=== PATIENT | male | born 1940 | race Caucasian/White ===

== ENCOUNTER 2020-12-02 07:41 | Inpatient (IN) ==
[2020-12-02] MEDS ORDERED: 0.9 % Sodium Chloride 1,000 ML IVC ONE ×2 (08:03→10:09)
[2020-12-02 08:27] LABS: Basophils % 0.1 %; Hematocrit 42.8 % (37.5-50.1); Immature Granulocytes % 0.6 % (0-4); Lymphocytes # 0.7 K/mcL (0.6-4.6); Mean Corpuscular HGB Conc 32.7 g/dL (31.6-35.5); Mean Corpuscular Volume 88.8 fL (83.0-100.0); Mean Platelet Volume 11.3 fL (9.4-12.4); Monocytes # 1.2 K/mcL (0.0-1.3); Monocytes % 10.1 %; Neutrophils # 10.1 K/mcL (1.6-8.9); Platelet Count 183 K/mcL (140-400); Red Blood Count 4.82 M/mcL (4.19-5.50); Red Cell Distribution Width 14.6 % (11.5-14.5); Segmented Neutrophils % 83.2 %; White Blood Count 12.2 K/mcL (4.3-11.1)
[2020-12-02 08:48] LABS: Bacteria,Urine Few per hpf (None-Few); Bilirubin,Urine Negative (Negative); Blood,Urine Moderate (Negative); Clarity,Urine Clear (Clear); Color,Urine Yellow (Yellow); Glucose,Urine (UA) Normal (Normal); Ketones,Urine 20 mg/dL (Negative); Leukocyte Esterase,Urine Moderate (Negative); Mucus,Urine Few per lpf (None-Few); Nitrite,Urine Negative (Negative); Protein,Urine 100 mg/dL (Neg-Trace); RBC,Urine 15-30 per hpf (0-3); Specific Gravity,Urine 1.027 (1.010-1.025); Squamous Epithelial Cell,Urine Few per hpf (None-Few); Urobilinogen,Urine >=8.0 mg/dL (Normal); WBC,Urine 50-100 per hpf (0-3)
[2020-12-02 08:49] LABS: Alanine Aminotransferase 13 Units/L (7-52); Albumin 3.6 g/dL (3.5-5.7); Albumin/Globulin Ratio 0.8 (1.1-2.2); Alkaline Phosphatase 73 Units/L (34-104); Amylase 29 Units/L (29-103); Aspartate Amino Transferase 27 Units/L (13-39); BUN/Creatinine Ratio 34 (6-26); Bilirubin,Direct 0.3 mg/dL (0.0-0.2); Bilirubin,Indirect 0.7 mg/dL (0.0-1.0); Blood Urea Nitrogen 31 mg/dL (8-23); Calcium 9.3 mg/dL (8.6-10.3); Carbon Dioxide 25 mEq/L (23-29); Chloride 97 mEq/L (98-107); Globulin 4.4 g/dL (2.4-3.5); Glucose 116 mg/dL (70-105); Lipase 13 Units/L (11-82); Osmolality,Calculated 284 (280-300); Potassium 3.8 mEq/L (3.5-5.1); Sodium 133 mEq/L (136-145); Troponin I < 0.03 ng/mL (< 0.04); eGFR For African Americans > 60 (> 60); eGFR For Non-African Americans > 60 (> 60)
[2020-12-02 09:34] LABS: Adenovirus Not Detected (Not Detect); Bordetella Pertussis Not Detected (Not Detect); Chlamydophila pneumoniae Not Detected (Not Detect); Coronavirus 229E Not Detected (Not Detect); Coronavirus HKU1 Not Detected (Not Detect); Coronavirus NL63 Not Detected (Not Detect); Coronavirus OC43 Not Detected (Not Detect); Human Metapneumovirus Not Detected (Not Detect); Human Rhinovirus/Enterovirus Not Detected (Not Detect); Influenza A Subtype 2009 H1 Not Detected (Not Detect); Influenza B Not Detected (Not Detect); Mycoplasma pneumoniae Not Detected (Not Detect); Parainfluenza Virus 1 Not Detected (Not Detect); Parainfluenza Virus 2 Not Detected (Not Detect); Parainfluenza Virus 3 Not Detected (Not Detect); Parainfluenza Virus 4 Not Detected (Not Detect); Respiratory Syncytial Virus Not Detected (Not Detect); SARS-CoV-2 Not Detected (Not Detect)
[2020-12-02] MEDS ORDERED: cefTRIAXone 1,000 MG in 0.9 % Sodium Chloride Mini Bag 100 ML IVPB ONE (09:53)
[2020-12-02] MEDS ORDERED: CefTRIAXone 1,000 MG VIAL ONE (10:00)
[2020-12-02] MEDS ORDERED: Naloxone 0.4 MG/ML INJ IVP PRN (10:17)
[2020-12-02] MEDS ORDERED: Acetaminophen 325 MG TABLET PO PRN (11:32)
[2020-12-02] MEDS ORDERED: *HR* OxyCODONE Immed Rel 5 MG TABLET PO PRN (11:32)
[2020-12-02] MEDS: 0.9 % Sodium Chloride 1,000 ML IVC SCH (17:23)
[2020-12-02] MEDS ORDERED: Ketorolac 30 MG/ML VIAL IVP PRN (17:34)
[2020-12-03] MEDS: 0.9 % Sodium Chloride 1,000 ML IVC SCH ×3 (01:46→16:48)
[2020-12-03] MEDS: *HR* HYDROcodone/Acet 5/325 mg TABLET PO PRN ×2 (07:49→18:19)
[2020-12-03 07:53] LABS: Basophils % 0.1 %; Eosinophils % 0.1 %; Hematocrit 34.4 % (37.5-50.1); Immature Granulocytes % 0.5 % (0-4); Lymphocytes # 1.3 K/mcL (0.6-4.6); Lymphocytes % 9.5 %; Mean Corpuscular Hemoglobin 29.6 pg (28.0-33.3); Mean Corpuscular Volume 92.5 fL (83.0-100.0); Mean Platelet Volume 11.8 fL (9.4-12.4); Monocytes # 1.4 K/mcL (0.0-1.3); Monocytes % 10.2 %; Neutrophils # 10.7 K/mcL (1.6-8.9); Platelet Count 157 K/mcL (140-400); Red Blood Count 3.72 M/mcL (4.19-5.50); Segmented Neutrophils % 79.6 %; White Blood Count 13.4 K/mcL (4.3-11.1)
[2020-12-03 08:17] LABS: BUN/Creatinine Ratio 37 (6-26); Blood Urea Nitrogen 28 mg/dL (8-23); Calcium 8.2 mg/dL (8.6-10.3); Carbon Dioxide 23 mEq/L (23-29); Chloride 104 mEq/L (98-107); Glucose 96 mg/dL (70-105); Osmolality,Calculated 285 (280-300); Potassium 3.6 mEq/L (3.5-5.1); Sodium 135 mEq/L (136-145); eGFR For African Americans > 60 (> 60); eGFR For Non-African Americans > 60 (> 60)
[2020-12-03] MEDS ORDERED: cefTRIAXone 2,000 MG in Water for inj. (sterile) 20 ML IVP SCH (09:00)
[2020-12-03] MEDS: *HR* Heparin 5,000 UNIT/ML VIAL SQ SCH (16:48)
[2020-12-03] MEDS: Ertapenem 1,000 MG in 0.9 % Sodium Chloride Mini Bag 100 ML IVPB SCH (16:49)
[2020-12-03] MEDS: Budesonide/Formoterol 160/4.5 1 PUFF INH IH SCH (20:15)
[2020-12-03] MEDS: Gabapentin 300 MG CAPSULE PO SCH (20:26)
[2020-12-04] MEDS: 0.9 % Sodium Chloride 1,000 ML IVC SCH ×2 (02:57→08:21)
[2020-12-04] MEDS: *HR* Heparin 5,000 UNIT/ML VIAL SQ SCH ×2 (05:39→16:58)
[2020-12-04 06:38] LABS: Basophils % 0.1 %; Eosinophils % 0.3 %; Hematocrit 34.5 % (37.5-50.1); Immature Granulocytes % 0.6 % (0-4); Lymphocytes # 1.6 K/mcL (0.6-4.6); Lymphocytes % 10.6 %; Mean Corpuscular HGB Conc 31.9 g/dL (31.6-35.5); Mean Corpuscular Hemoglobin 29.4 pg (28.0-33.3); Mean Corpuscular Volume 92.2 fL (83.0-100.0); Monocytes # 1.4 K/mcL (0.0-1.3); Monocytes % 9.4 %; Neutrophils # 12.1 K/mcL (1.6-8.9); Platelet Count 176 K/mcL (140-400); Red Blood Count 3.74 M/mcL (4.19-5.50); Red Cell Distribution Width 15.2 % (11.5-14.5); White Blood Count 15.3 K/mcL (4.3-11.1)
[2020-12-04 06:56] LABS: BUN/Creatinine Ratio 34 (6-26); Blood Urea Nitrogen 25 mg/dL (8-23); Calcium 8.1 mg/dL (8.6-10.3); Carbon Dioxide 21 mEq/L (23-29); Chloride 108 mEq/L (98-107); Glucose 106 mg/dL (70-105); Osmolality,Calculated 287 (280-300); Potassium 3.6 mEq/L (3.5-5.1); Sodium 136 mEq/L (136-145); eGFR For African Americans > 60 (> 60); eGFR For Non-African Americans > 60 (> 60)
[2020-12-04] MEDS: amLODIPine 5 MG TABLET PO SCH (08:14)
[2020-12-04] MEDS: lisinopriL 20 MG TABLET PO SCH (08:14)
[2020-12-04] MEDS: FLUoxetine 20 MG CAPSULE PO SCH (08:21)
[2020-12-04] MEDS: *HR* HYDROcodone/Acet 5/325 mg TABLET PO PRN (08:46)
[2020-12-04] MEDS: Budesonide/Formoterol 160/4.5 1 PUFF INH IH SCH ×2 (10:42→23:00)
[2020-12-04] MEDS ORDERED: Isovue-370 500 ML BOTTLE IVP ONE (15:24)
[2020-12-04] MEDS: Ertapenem 1,000 MG in 0.9 % Sodium Chloride Mini Bag 100 ML IVPB SCH (16:58)
[2020-12-04] MEDS: Gabapentin 300 MG CAPSULE PO SCH (20:32)
[2020-12-05 06:09] LABS: Basophils % 0.1 %; Eosinophils # 0.1 K/mcL (0.0-0.6); Eosinophils % 1.3 %; Hematocrit 36.3 % (37.5-50.1); Hemoglobin 11.6 g/dL (12.9-16.9); Immature Granulocytes % 0.8 % (0-4); Lymphocytes # 1.4 K/mcL (0.6-4.6); Lymphocytes % 12.7 %; Mean Corpuscular Hemoglobin 29.5 pg (28.0-33.3); Mean Corpuscular Volume 92.4 fL (83.0-100.0); Mean Platelet Volume 11.8 fL (9.4-12.4); Monocytes # 1.3 K/mcL (0.0-1.3); Monocytes % 11.4 %; Neutrophils # 8.1 K/mcL (1.6-8.9); Platelet Count 214 K/mcL (140-400); Red Blood Count 3.93 M/mcL (4.19-5.50); Red Cell Distribution Width 15.3 % (11.5-14.5); Segmented Neutrophils % 73.7 %
[2020-12-05] MEDS: *HR* Heparin 5,000 UNIT/ML VIAL SQ SCH ×2 (06:10→17:07)
[2020-12-05 06:31] LABS: BUN/Creatinine Ratio 30 (6-26); Blood Urea Nitrogen 20 mg/dL (8-23); Calcium 8.3 mg/dL (8.6-10.3); Carbon Dioxide 23 mEq/L (23-29); Chloride 106 mEq/L (98-107); Glucose 107 mg/dL (70-105); Osmolality,Calculated 287 (280-300); Potassium 3.4 mEq/L (3.5-5.1); Sodium 137 mEq/L (136-145); eGFR For African Americans > 60 (> 60); eGFR For Non-African Americans > 60 (> 60)
[2020-12-05] MEDS: amLODIPine 5 MG TABLET PO SCH (08:22)
[2020-12-05] MEDS: lisinopriL 20 MG TABLET PO SCH (08:22)
[2020-12-05] MEDS: FLUoxetine 20 MG CAPSULE PO SCH (08:22)
[2020-12-05] MEDS ORDERED: Ipratropium/Albuterol Neb 3 ML IH PRN (08:56)
[2020-12-05] MEDS ORDERED: Lidocaine -MPF 1% 5 ML AMPUL INFILT ONE (09:00)
[2020-12-05] MEDS: Budesonide/Formoterol 160/4.5 1 PUFF INH IH SCH ×2 (11:12→20:26)
[2020-12-05] MEDS: Ertapenem 1,000 MG in 0.9 % Sodium Chloride Mini Bag 100 ML IVPB SCH (17:07)
[2020-12-05] MEDS: Gabapentin 300 MG CAPSULE PO SCH (20:20)
[2020-12-05] MEDS ORDERED: 0.9 % Sodium Chloride 500 ML ONE (23:27)
[2020-12-06] MEDS ORDERED: 0.9 % Sodium Chloride 500 ML ONE (00:22)
[2020-12-06] MEDS ORDERED: 0.9 % Sodium Chloride 1,000 ML ONE ×2 (01:05→03:03)
[2020-12-06] MEDS ORDERED: Naloxone 0.4 MG/ML INJ IVP PRN (04:45)
[2020-12-06] MEDS ORDERED: Acetaminophen 325 MG TABLET PO PRN (04:45)
[2020-12-06] MEDS ORDERED: Ipratropium/Albuterol Neb 3 ML IH PRN (04:45)
[2020-12-06] MEDS ORDERED: *HR* OxyCODONE Immed Rel 5 MG TABLET PO PRN (04:45)
[2020-12-06] MEDS ORDERED: Ketorolac 30 MG/ML VIAL IVP PRN (04:45)
[2020-12-06 04:53] LABS: Basophils % 0.1 %; Eosinophils # 0.1 K/mcL (0.0-0.6); Eosinophils % 0.8 %; Hematocrit 29.6 % (37.5-50.1); Immature Granulocytes % 0.5 % (0-4); Lymphocytes # 1.3 K/mcL (0.6-4.6); Mean Corpuscular HGB Conc 32.8 g/dL (31.6-35.5); Mean Corpuscular Hemoglobin 30.1 pg (28.0-33.3); Mean Corpuscular Volume 91.9 fL (83.0-100.0); Mean Platelet Volume 11.7 fL (9.4-12.4); Monocytes # 1.3 K/mcL (0.0-1.3); Monocytes % 13.8 %; Neutrophils # 6.5 K/mcL (1.6-8.9); Platelet Count 225 K/mcL (140-400); Red Blood Count 3.22 M/mcL (4.19-5.50); Red Cell Distribution Width 15.2 % (11.5-14.5); Segmented Neutrophils % 70.8 %; White Blood Count 9.2 K/mcL (4.3-11.1)
[2020-12-06 04:56] LABS: Hemoglobin 9.7 g/dL (12.9-16.9)
[2020-12-06] MEDS ORDERED: *HR* Metoprolol 5 MG/5 ML VIAL IVP PRN (05:07)
[2020-12-06 05:12] LABS: BUN/Creatinine Ratio 22 (6-26); Blood Urea Nitrogen 14 mg/dL (8-23); Calcium 7.8 mg/dL (8.6-10.3); Carbon Dioxide 24 mEq/L (23-29); Chloride 108 mEq/L (98-107); Glucose 112 mg/dL (70-105); Osmolality,Calculated 287 (280-300); Potassium 3.3 mEq/L (3.5-5.1); Sodium 138 mEq/L (136-145); eGFR For African Americans > 60 (> 60); eGFR For Non-African Americans > 60 (> 60)
[2020-12-06] MEDS: 0.9 % Sodium Chloride 1,000 ML IVC SCH ×2 (05:30→17:08)
[2020-12-06] MEDS ORDERED: *HR* Heparin 5,000 UNIT/ML VIAL SQ SCH (06:00)
[2020-12-06] MEDS: FLUoxetine 20 MG CAPSULE PO SCH (07:56)
[2020-12-06] MEDS: lisinopriL 20 MG TABLET PO SCH (07:56)
[2020-12-06] MEDS: amLODIPine 5 MG TABLET PO SCH (07:56)
[2020-12-06] MEDS ORDERED: Furosemide 20 MG/2 ML VIAL IVP ONE (07:58)
[2020-12-06] MEDS ORDERED: Albumin 25% 25gram/100mL 25 GM/100 ML IV.SOLN IVPB ONE (07:58)
[2020-12-06] MEDS: Budesonide/Formoterol 160/4.5 1 PUFF INH IH SCH ×2 (09:30→21:45)
[2020-12-06 10:27] LABS: Hematocrit 33.2 % (37.5-50.1); Hemoglobin 10.6 g/dL (12.9-16.9)
[2020-12-06] MEDS ORDERED: Perflutren Lipid Microsphere 1.3 ML in 0.9 % Sodium Chloride 8.7 ML IVP PRN (10:47)
[2020-12-06] MEDS ORDERED: *HR* Heparin 5,000 UNIT/ML VIAL IVP ONE (15:02)
[2020-12-06] MEDS ORDERED: *HR* Heparin 5,000 UNIT/ML VIAL IVP PRN ×2 (15:02)
[2020-12-06] MEDS: Ertapenem 1,000 MG in 0.9 % Sodium Chloride Mini Bag 100 ML IVPB SCH (17:12)
[2020-12-06] MEDS: Heparin 25,000UNIT/250ML 1/2NS 25,000 UNIT/250 ML IV.SOLN IVC SCH (17:14)
[2020-12-06] MEDS: Gabapentin 300 MG CAPSULE PO SCH (21:05)
[2020-12-07 03:24] LABS: Basophils % 0.2 %; Eosinophils # 0.3 K/mcL (0.0-0.6); Eosinophils % 2.7 %; Hematocrit 30.9 % (37.5-50.1); Hemoglobin 9.9 g/dL (12.9-16.9); Immature Granulocytes % 0.7 % (0-4); Lymphocytes # 1.6 K/mcL (0.6-4.6); Lymphocytes % 14.8 %; Mean Corpuscular Hemoglobin 29.3 pg (28.0-33.3); Mean Corpuscular Volume 91.4 fL (83.0-100.0); Mean Platelet Volume 11.4 fL (9.4-12.4); Monocytes # 1.4 K/mcL (0.0-1.3); Neutrophils # 7.3 K/mcL (1.6-8.9); Platelet Count 250 K/mcL (140-400); Red Blood Count 3.38 M/mcL (4.19-5.50); Red Cell Distribution Width 15.4 % (11.5-14.5); Segmented Neutrophils % 68.6 %; White Blood Count 10.7 K/mcL (4.3-11.1)
[2020-12-07 03:43] LABS: BUN/Creatinine Ratio 27 (6-26); Blood Urea Nitrogen 14 mg/dL (8-23); Calcium 8.1 mg/dL (8.6-10.3); Carbon Dioxide 25 mEq/L (23-29); Chloride 106 mEq/L (98-107); Glucose 104 mg/dL (70-105); Osmolality,Calculated 291 (280-300); Potassium 3.2 mEq/L (3.5-5.1); Sodium 140 mEq/L (136-145); eGFR For African Americans > 60 (> 60); eGFR For Non-African Americans > 60 (> 60)
[2020-12-07 06:50] LABS: Alanine Aminotransferase 9 Units/L (7-52); Albumin 2.6 g/dL (3.5-5.7); Albumin/Globulin Ratio 0.8 (1.1-2.2); Alkaline Phosphatase 52 Units/L (34-104); Aspartate Amino Transferase 22 Units/L (13-39); BUN/Creatinine Ratio 27 (6-26); Bilirubin,Total 0.7 mg/dL (0.3-1.0); Blood Urea Nitrogen 15 mg/dL (8-23); Calcium 8.3 mg/dL (8.6-10.3); Carbon Dioxide 28 mEq/L (23-29); Chloride 105 mEq/L (98-107); Globulin 3.1 g/dL (2.4-3.5); Glucose 104 mg/dL (70-105); Osmolality,Calculated 293 (280-300); Potassium 3.2 mEq/L (3.5-5.1); Sodium 141 mEq/L (136-145); Total Protein 5.7 g/dL (6.4-8.9); eGFR For African Americans > 60 (> 60); eGFR For Non-African Americans > 60 (> 60)
[2020-12-07] MEDS: Budesonide/Formoterol 160/4.5 1 PUFF INH IH SCH ×2 (07:29→19:28)
[2020-12-07] MEDS: 0.9 % Sodium Chloride 1,000 ML IVC SCH ×3 (07:37→22:51)
[2020-12-07] MEDS: lisinopriL 20 MG TABLET PO SCH (08:52)
[2020-12-07] MEDS: amLODIPine 5 MG TABLET PO SCH (08:52)
[2020-12-07] MEDS: FLUoxetine 20 MG CAPSULE PO SCH (09:02)
[2020-12-07] MEDS: *HR* HYDROcodone/Acet 5/325 mg TABLET PO PRN (09:02)
[2020-12-07] MEDS: Heparin 25,000UNIT/250ML 1/2NS 25,000 UNIT/250 ML IV.SOLN IVC SCH ×2 (10:14→11:38)
[2020-12-07] MEDS: Ertapenem 1,000 MG in 0.9 % Sodium Chloride Mini Bag 100 ML IVPB SCH (17:16)
[2020-12-07] MEDS: Gabapentin 300 MG CAPSULE PO SCH (20:09)
[2020-12-08 06:44] LABS: Basophils % 0.3 %; Eosinophils # 0.3 K/mcL (0.0-0.6); Eosinophils % 3.2 %; Hematocrit 31.7 % (37.5-50.1); Hemoglobin 9.9 g/dL (12.9-16.9); Immature Granulocytes % 0.8 % (0-4); Lymphocytes # 1.9 K/mcL (0.6-4.6); Lymphocytes % 18.6 %; Mean Corpuscular HGB Conc 31.2 g/dL (31.6-35.5); Mean Corpuscular Hemoglobin 28.9 pg (28.0-33.3); Mean Corpuscular Volume 92.4 fL (83.0-100.0); Mean Platelet Volume 11.5 fL (9.4-12.4); Monocytes # 1.3 K/mcL (0.0-1.3); Monocytes % 12.3 %; Neutrophils # 6.7 K/mcL (1.6-8.9); Platelet Count 315 K/mcL (140-400); Red Blood Count 3.43 M/mcL (4.19-5.50); Red Cell Distribution Width 15.5 % (11.5-14.5); Segmented Neutrophils % 64.8 %; White Blood Count 10.4 K/mcL (4.3-11.1)
[2020-12-08 07:04] LABS: Chol/HDL Ratio 4.8 (0-4.9)
[2020-12-08] MEDS: Budesonide/Formoterol 160/4.5 1 PUFF INH IH SCH ×2 (07:29→21:56)
[2020-12-08] MEDS: 0.9 % Sodium Chloride 1,000 ML IVC SCH ×2 (07:30→17:31)
[2020-12-08] MEDS: Heparin 25,000UNIT/250ML 1/2NS 25,000 UNIT/250 ML IV.SOLN IVC SCH (07:58)
[2020-12-08] MEDS: lisinopriL 5 MG TABLET PO SCH (08:36)
[2020-12-08] MEDS: FLUoxetine 20 MG CAPSULE PO SCH (08:36)
[2020-12-08 10:20] LABS: BUN/Creatinine Ratio 28 (6-26); Blood Urea Nitrogen 16 mg/dL (8-23); Calcium 8.3 mg/dL (8.6-10.3); Carbon Dioxide 28 mEq/L (23-29); Chloride 105 mEq/L (98-107); Glucose 103 mg/dL (70-105); Osmolality,Calculated 289 (280-300); Potassium 3.9 mEq/L (3.5-5.1); Sodium 139 mEq/L (136-145); eGFR For African Americans > 60 (> 60); eGFR For Non-African Americans > 60 (> 60)
[2020-12-08] MEDS ORDERED: ISOVUE-370 200 ML INFUS..BTL ONE (10:59)
[2020-12-08] MEDS ORDERED: *HR* Heparin 10,000 UNIT/10 ML VIAL ONE (10:59)
[2020-12-08] MEDS ORDERED: Heparin 1,000 UNITS/500 mL 500 ML ONE (10:59)
[2020-12-08] MEDS ORDERED: 0.9 % Sodium Chloride 2,000 ML ONE (10:59)
[2020-12-08] MEDS ORDERED: Nitroglycerin 1,000 MCG/10 ML VIAL IV ONE (11:00)
[2020-12-08] MEDS ORDERED: *HR* Midazolam HCl 2 MG/2 ML VIAL ONE (11:28)
[2020-12-08] MEDS ORDERED: *HR* FentaNYL (PF) 100 MCG/2 ML VIAL ONE (11:28)
[2020-12-08] MEDS: Aspirin 81 MG TAB.CHEW PO SCH (14:12)
[2020-12-08] MEDS: Ertapenem 1,000 MG in 0.9 % Sodium Chloride Mini Bag 100 ML IVPB SCH (17:32)
[2020-12-08] MEDS: Gabapentin 300 MG CAPSULE PO SCH (20:47)
[2020-12-09 01:55] LABS: Basophils % 0.3 %; Eosinophils # 0.2 K/mcL (0.0-0.6); Eosinophils % 1.4 %; Hematocrit 32.6 % (37.5-50.1); Hemoglobin 10.1 g/dL (12.9-16.9); Immature Granulocytes % 0.7 % (0-4); Lymphocytes # 2.2 K/mcL (0.6-4.6); Lymphocytes % 20.1 %; Mean Corpuscular Hemoglobin 28.7 pg (28.0-33.3); Mean Corpuscular Volume 92.6 fL (83.0-100.0); Mean Platelet Volume 11.4 fL (9.4-12.4); Monocytes # 1.5 K/mcL (0.0-1.3); Monocytes % 13.4 %; Platelet Count 352 K/mcL (140-400); Red Blood Count 3.52 M/mcL (4.19-5.50); Red Cell Distribution Width 15.4 % (11.5-14.5); Segmented Neutrophils % 64.1 %; White Blood Count 10.9 K/mcL (4.3-11.1)
[2020-12-09 02:13] LABS: BUN/Creatinine Ratio 24 (6-26); Blood Urea Nitrogen 15 mg/dL (8-23); Calcium 8.5 mg/dL (8.6-10.3); Carbon Dioxide 28 mEq/L (23-29); Chloride 104 mEq/L (98-107); Glucose 94 mg/dL (70-105); Osmolality,Calculated 289 (280-300); Potassium 4.5 mEq/L (3.5-5.1); Sodium 139 mEq/L (136-145); eGFR For African Americans > 60 (> 60); eGFR For Non-African Americans > 60 (> 60)
[2020-12-09] MEDS: *HR* HYDROcodone/Acet 5/325 mg TABLET PO PRN (02:39)
[2020-12-09] MEDS: 0.9 % Sodium Chloride 1,000 ML IVC SCH (02:42)
[2020-12-09] MEDS: Budesonide/Formoterol 160/4.5 1 PUFF INH IH SCH ×2 (07:34→22:22)
[2020-12-09] MEDS: Heparin 25,000UNIT/250ML 1/2NS 25,000 UNIT/250 ML IV.SOLN IVC SCH ×2 (08:00→22:44)
[2020-12-09] MEDS ORDERED: Furosemide 20 MG/2 ML VIAL IVP STA (09:58)
[2020-12-09] MEDS: FLUoxetine 20 MG CAPSULE PO SCH (12:11)
[2020-12-09] MEDS: Aspirin 81 MG TAB.CHEW PO SCH (12:11)
[2020-12-09] MEDS: lisinopriL 5 MG TABLET PO SCH (12:11)
[2020-12-09 12:17] LABS: Influenza A PCR Negative (Negative); Influenza B PCR Negative (Negative); Resp. Syncytial Virus PCR Negative (Negative)
[2020-12-09 12:28] LABS: SARS-CoV-2 by PCR (In House) Negative (Negative)
[2020-12-09] MEDS ORDERED: Furosemide 20 MG/2 ML VIAL IVP ONE ×4 (12:28→13:02)
[2020-12-09] MEDS ORDERED: *HR* LORazepam 2 MG/ML VIAL IVP ONE (14:01)
[2020-12-09 14:51] LABS: ABG Base Excess 4 mEq/L (-2 to 3); ABG HCO3 28 mEq/L (21-27); ABG Oxygen Saturation 92 % (95-98); ABG PCO2 39 mmHg (35-45); ABG PH 7.46 pH Units (7.32-7.45); ABG PO2 61 mmHg (85-104); ABG TCO2 29 mEq/L (20-26)
[2020-12-09] MEDS: Ipratropium/Albuterol Neb 3 ML IH SCH ×2 (15:06→22:23)
[2020-12-09] MEDS: Ertapenem 1,000 MG in 0.9 % Sodium Chloride Mini Bag 100 ML IVPB SCH (18:13)
[2020-12-09] MEDS: Furosemide 40 MG/4 ML VIAL IVP SCH (22:23)
[2020-12-09] MEDS: Gabapentin 300 MG CAPSULE PO SCH (22:24)
[2020-12-10] MEDS: Ipratropium/Albuterol Neb 3 ML IH SCH ×4 (03:27→21:33)
[2020-12-10 06:31] LABS: Basophils % 0.3 %; Eosinophils # 0.1 K/mcL (0.0-0.6); Eosinophils % 0.7 %; Hematocrit 34.3 % (37.5-50.1); Hemoglobin 11.1 g/dL (12.9-16.9); Immature Granulocytes % 0.3 % (0-4); Lymphocytes # 1.8 K/mcL (0.6-4.6); Lymphocytes % 14.9 %; Mean Corpuscular HGB Conc 32.4 g/dL (31.6-35.5); Mean Corpuscular Hemoglobin 29.6 pg (28.0-33.3); Mean Corpuscular Volume 91.5 fL (83.0-100.0); Monocytes # 1.2 K/mcL (0.0-1.3); Monocytes % 9.8 %; Neutrophils # 8.9 K/mcL (1.6-8.9); Platelet Count 388 K/mcL (140-400); Red Blood Count 3.75 M/mcL (4.19-5.50); Red Cell Distribution Width 15.2 % (11.5-14.5)
[2020-12-10 07:09] LABS: BUN/Creatinine Ratio 24 (6-26); Blood Urea Nitrogen 17 mg/dL (8-23); Calcium 8.7 mg/dL (8.6-10.3); Carbon Dioxide 32 mEq/L (23-29); Chloride 98 mEq/L (98-107); Glucose 86 mg/dL (70-105); Osmolality,Calculated 291 (280-300); Potassium 3.3 mEq/L (3.5-5.1); Sodium 140 mEq/L (136-145); eGFR For African Americans > 60 (> 60); eGFR For Non-African Americans > 60 (> 60)
[2020-12-10] MEDS: Furosemide 40 MG/4 ML VIAL IVP SCH (08:10)
[2020-12-10] MEDS: FLUoxetine 20 MG CAPSULE PO SCH (08:10)
[2020-12-10] MEDS: lisinopriL 5 MG TABLET PO SCH (08:10)
[2020-12-10] MEDS: Aspirin 81 MG TAB.CHEW PO SCH (08:10)
[2020-12-10] MEDS ORDERED: Potassium Chloride 40 MEQ, Lidocaine 1% 2 ML in 0.9 % Sodium Chloride 500 ML IVPB ONE (08:22)
[2020-12-10] MEDS ORDERED: Furosemide 40 MG/4 ML VIAL IVP ONE (09:05)
[2020-12-10] MEDS: Budesonide/Formoterol 160/4.5 1 PUFF INH IH SCH ×2 (10:12→21:34)
[2020-12-10] MEDS: Ertapenem 1,000 MG in 0.9 % Sodium Chloride Mini Bag 100 ML IVPB SCH (17:02)
[2020-12-10] MEDS: Gabapentin 300 MG CAPSULE PO SCH (20:48)
[2020-12-10] MEDS: Metoprolol XL (24 HR) Succ 25 MG TAB.ER.24H PO SCH (20:48)
[2020-12-10] MEDS: Furosemide 80 MG in 0.9 % Sodium Chloride 50 ML IV SCH (20:48)
[2020-12-10] MEDS ORDERED: Furosemide 40 MG/4 ML VIAL IVP SCH (21:00)
[2020-12-10] MEDS: Heparin 25,000UNIT/250ML 1/2NS 25,000 UNIT/250 ML IV.SOLN IVC SCH (23:15)
[2020-12-11] MEDS: Ipratropium/Albuterol Neb 3 ML IH SCH ×4 (03:58→22:20)
[2020-12-11] MEDS: Furosemide 80 MG in 0.9 % Sodium Chloride 50 ML IV SCH (09:06)
[2020-12-11] MEDS: Aspirin 81 MG TAB.CHEW PO SCH (09:07)
[2020-12-11] MEDS: Metoprolol XL (24 HR) Succ 25 MG TAB.ER.24H PO SCH ×2 (09:07→19:38)
[2020-12-11] MEDS: FLUoxetine 20 MG CAPSULE PO SCH (09:07)
[2020-12-11] MEDS: Budesonide/Formoterol 160/4.5 1 PUFF INH IH SCH ×2 (11:09→22:20)
[2020-12-11 12:43] LABS: Monocytes % 10.8 %
[2020-12-11 12:48] LABS: Basophils # 0.1 K/mcL (0.0-0.2); Basophils % 0.5 %; Eosinophils # 0.1 K/mcL (0.0-0.6); Eosinophils % 0.8 %; Hematocrit 40.9 % (37.5-50.1); Hemoglobin 12.9 g/dL (12.9-16.9); Immature Granulocytes % 0.5 % (0-4); Lymphocytes # 1.5 K/mcL (0.6-4.6); Lymphocytes % 13.4 %; Mean Corpuscular HGB Conc 31.5 g/dL (31.6-35.5); Mean Corpuscular Hemoglobin 28.7 pg (28.0-33.3); Mean Corpuscular Volume 90.9 fL (83.0-100.0); Monocytes # 1.2 K/mcL (0.0-1.3); Neutrophils # 8.2 K/mcL (1.6-8.9); Platelet Count 452 K/mcL (140-400); Red Cell Distribution Width 15.3 % (11.5-14.5)
[2020-12-11 13:22] LABS: BUN/Creatinine Ratio 22 (6-26); Blood Urea Nitrogen 18 mg/dL (8-23); Calcium 9.4 mg/dL (8.6-10.3); Carbon Dioxide 34 mEq/L (23-29); Chloride 92 mEq/L (98-107); Glucose 98 mg/dL (70-105); Magnesium 1.8 mg/dL (1.6-2.6); Osmolality,Calculated 290 (280-300); Potassium 3.6 mEq/L (3.5-5.1); Sodium 139 mEq/L (136-145); eGFR For African Americans > 60 (> 60); eGFR For Non-African Americans > 60 (> 60)
[2020-12-11] MEDS: lisinopriL 5 MG TABLET PO SCH (17:04)
[2020-12-11] MEDS: Furosemide 40 MG/4 ML VIAL IVP SCH (17:06)
[2020-12-11] MEDS: Ertapenem 1,000 MG in 0.9 % Sodium Chloride Mini Bag 100 ML IVPB SCH (17:29)
[2020-12-11] MEDS: Gabapentin 300 MG CAPSULE PO SCH (19:38)
[2020-12-11] MEDS: Heparin 25,000UNIT/250ML 1/2NS 25,000 UNIT/250 ML IV.SOLN IVC SCH (23:18)
[2020-12-12 03:23] LABS: Basophils % 0.4 %; Eosinophils # 0.1 K/mcL (0.0-0.6); Eosinophils % 1.1 %; Hematocrit 35.1 % (37.5-50.1); Immature Granulocytes % 0.5 % (0-4); Lymphocytes # 2.1 K/mcL (0.6-4.6); Lymphocytes % 19.2 %; Mean Corpuscular HGB Conc 31.6 g/dL (31.6-35.5); Mean Corpuscular Hemoglobin 28.6 pg (28.0-33.3); Mean Corpuscular Volume 90.5 fL (83.0-100.0); Mean Platelet Volume 10.9 fL (9.4-12.4); Monocytes # 1.3 K/mcL (0.0-1.3); Monocytes % 11.8 %; Neutrophils # 7.4 K/mcL (1.6-8.9); Platelet Count 403 K/mcL (140-400); Red Blood Count 3.88 M/mcL (4.19-5.50); Red Cell Distribution Width 15.3 % (11.5-14.5)
[2020-12-12 03:25] LABS: Hemoglobin 11.1 g/dL (12.9-16.9)
[2020-12-12 03:40] LABS: BUN/Creatinine Ratio 28 (6-26); Blood Urea Nitrogen 20 mg/dL (8-23); Calcium 8.7 mg/dL (8.6-10.3); Carbon Dioxide 34 mEq/L (23-29); Chloride 97 mEq/L (98-107); Glucose 104 mg/dL (70-105); Magnesium 1.9 mg/dL (1.6-2.6); Osmolality,Calculated 291 (280-300); Potassium 3.8 mEq/L (3.5-5.1); Sodium 139 mEq/L (136-145); eGFR For African Americans > 60 (> 60); eGFR For Non-African Americans > 60 (> 60)
[2020-12-12] MEDS: Ipratropium/Albuterol Neb 3 ML IH SCH ×4 (04:20→21:12)
[2020-12-12] MEDS: FLUoxetine 20 MG CAPSULE PO SCH (08:53)
[2020-12-12] MEDS: Metoprolol XL (24 HR) Succ 25 MG TAB.ER.24H PO SCH ×2 (08:54→20:33)
[2020-12-12] MEDS: Aspirin 81 MG TAB.CHEW PO SCH (08:54)
[2020-12-12] MEDS: Furosemide 20 MG/2 ML VIAL IVP SCH ×2 (08:54→20:33)
[2020-12-12] MEDS: Budesonide/Formoterol 160/4.5 1 PUFF INH IH SCH ×2 (10:38→21:12)
[2020-12-12] MEDS: lisinopriL 5 MG TABLET PO SCH (11:00)
[2020-12-12] MEDS: Furosemide 40 MG/4 ML VIAL IVP SCH (11:08)
[2020-12-12] MEDS ORDERED: Nitroglycerin 1,000 MCG/10 ML VIAL IV ONE (12:34)
[2020-12-12] MEDS ORDERED: 0.9 % Sodium Chloride 2,000 ML ONE (12:34)
[2020-12-12] MEDS ORDERED: *HR* Heparin 10,000 UNIT/10 ML VIAL ONE (12:34)
[2020-12-12] MEDS ORDERED: ISOVUE-370 200 ML INFUS..BTL ONE ×2 (12:34→13:56)
[2020-12-12] MEDS ORDERED: Heparin 1,000 UNITS/500 mL 500 ML ONE (12:34)
[2020-12-12] MEDS ORDERED: *HR* Midazolam HCl 2 MG/2 ML VIAL ONE (13:02)
[2020-12-12] MEDS ORDERED: *HR* FentaNYL (PF) 100 MCG/2 ML VIAL ONE (13:02)
[2020-12-12] MEDS ORDERED: Tirofiban 12.5 MG/250ML 12.5 MG/250 ML BAG ONE (13:38)
[2020-12-12] MEDS ORDERED: Tirofiban 12.5 MG/250ML 12.5 MG/250 ML BAG IVC SCH (14:15)
[2020-12-12] MEDS: Ertapenem 1,000 MG in 0.9 % Sodium Chloride Mini Bag 100 ML IVPB SCH (17:16)
[2020-12-12] MEDS: Gabapentin 300 MG CAPSULE PO SCH (20:33)
[2020-12-13] MEDS: Ipratropium/Albuterol Neb 3 ML IH SCH ×4 (03:36→22:46)
[2020-12-13 06:49] LABS: Basophils % 0.4 %; Eosinophils # 0.1 K/mcL (0.0-0.6); Eosinophils % 1.4 %; Hematocrit 37.9 % (37.5-50.1); Hemoglobin 11.8 g/dL (12.9-16.9); Immature Granulocytes % 0.4 % (0-4); Lymphocytes # 1.6 K/mcL (0.6-4.6); Lymphocytes % 16.6 %; Mean Corpuscular HGB Conc 31.1 g/dL (31.6-35.5); Mean Corpuscular Hemoglobin 29.4 pg (28.0-33.3); Mean Corpuscular Volume 94.5 fL (83.0-100.0); Mean Platelet Volume 11.2 fL (9.4-12.4); Monocytes % 9.6 %; Neutrophils # 7.1 K/mcL (1.6-8.9); Platelet Count 349 K/mcL (140-400); Red Blood Count 4.01 M/mcL (4.19-5.50); Red Cell Distribution Width 15.3 % (11.5-14.5); Segmented Neutrophils % 71.6 %; White Blood Count 9.9 K/mcL (4.3-11.1)
[2020-12-13 07:12] LABS: BUN/Creatinine Ratio 22 (6-26); Blood Urea Nitrogen 17 mg/dL (8-23); Calcium 9.2 mg/dL (8.6-10.3); Carbon Dioxide 31 mEq/L (23-29); Chloride 100 mEq/L (98-107); Glucose 103 mg/dL (70-105); Osmolality,Calculated 288 (280-300); Potassium 3.9 mEq/L (3.5-5.1); Sodium 138 mEq/L (136-145); eGFR For African Americans > 60 (> 60); eGFR For Non-African Americans > 60 (> 60)
[2020-12-13] MEDS: FLUoxetine 20 MG CAPSULE PO SCH (07:55)
[2020-12-13] MEDS: Aspirin 81 MG TAB.CHEW PO SCH (07:55)
[2020-12-13] MEDS: lisinopriL 5 MG TABLET PO SCH (07:56)
[2020-12-13] MEDS: Metoprolol XL (24 HR) Succ 25 MG TAB.ER.24H PO SCH ×2 (07:56→20:02)
[2020-12-13] MEDS: Furosemide 20 MG/2 ML VIAL IVP SCH (07:56)
[2020-12-13] MEDS: Budesonide/Formoterol 160/4.5 1 PUFF INH IH SCH ×2 (10:07→22:46)
[2020-12-13] MEDS: Ertapenem 1,000 MG in 0.9 % Sodium Chloride Mini Bag 100 ML IVPB SCH (17:08)
[2020-12-13] MEDS: Gabapentin 300 MG CAPSULE PO SCH (20:02)
[2020-12-13] MEDS: *HR* HYDROcodone/Acet 5/325 mg TABLET PO PRN (20:02)
[2020-12-13] MEDS: Apixaban 5 MG TABLET PO SCH (20:02)
[2020-12-14] MEDS: Ipratropium/Albuterol Neb 3 ML IH SCH ×4 (03:53→21:45)
[2020-12-14] MEDS: Metoprolol XL (24 HR) Succ 25 MG TAB.ER.24H PO SCH ×2 (08:18→19:44)
[2020-12-14] MEDS: Aspirin 81 MG TAB.CHEW PO SCH (08:18)
[2020-12-14] MEDS: Furosemide 20 MG TABLET PO SCH (08:18)
[2020-12-14] MEDS: lisinopriL 5 MG TABLET PO SCH (08:18)
[2020-12-14] MEDS: FLUoxetine 20 MG CAPSULE PO SCH (08:18)
[2020-12-14] MEDS: Apixaban 5 MG TABLET PO SCH ×2 (08:18→19:43)
[2020-12-14] MEDS: Budesonide/Formoterol 160/4.5 1 PUFF INH IH SCH ×2 (10:20→21:45)
[2020-12-14] MEDS: Ertapenem 1,000 MG in 0.9 % Sodium Chloride Mini Bag 100 ML IVPB SCH (17:38)
[2020-12-14] MEDS: Gabapentin 300 MG CAPSULE PO SCH (19:43)
[2020-12-15] MEDS: Ipratropium/Albuterol Neb 3 ML IH SCH ×3 (03:42→15:10)
[2020-12-15 05:14] LABS: Hematocrit 37.6 % (37.5-50.1); Hemoglobin 11.7 g/dL (12.9-16.9); Mean Corpuscular HGB Conc 31.1 g/dL (31.6-35.5); Mean Corpuscular Hemoglobin 29.3 pg (28.0-33.3); Mean Corpuscular Volume 94.2 fL (83.0-100.0); Mean Platelet Volume 11.1 fL (9.4-12.4); Platelet Count 295 K/mcL (140-400); Red Blood Count 3.99 M/mcL (4.19-5.50); Red Cell Distribution Width 15.2 % (11.5-14.5); White Blood Count 10.8 K/mcL (4.3-11.1)
[2020-12-15 05:32] LABS: Alanine Aminotransferase 10 Units/L (7-52); Albumin/Globulin Ratio 0.7 (1.1-2.2); Alkaline Phosphatase 70 Units/L (34-104); Aspartate Amino Transferase 22 Units/L (13-39); BUN/Creatinine Ratio 25 (6-26); Bilirubin,Total 0.8 mg/dL (0.3-1.0); Blood Urea Nitrogen 18 mg/dL (8-23); Calcium 9.2 mg/dL (8.6-10.3); Carbon Dioxide 28 mEq/L (23-29); Chloride 102 mEq/L (98-107); Globulin 4.4 g/dL (2.4-3.5); Glucose 97 mg/dL (70-105); Osmolality,Calculated 286 (280-300); Potassium 4.6 mEq/L (3.5-5.1); Sodium 137 mEq/L (136-145); Total Protein 7.4 g/dL (6.4-8.9); eGFR For African Americans > 60 (> 60); eGFR For Non-African Americans > 60 (> 60)
[2020-12-15] MEDS: Aspirin 81 MG TAB.CHEW PO SCH (08:28)
[2020-12-15] MEDS: FLUoxetine 20 MG CAPSULE PO SCH (08:28)
[2020-12-15] MEDS: lisinopriL 5 MG TABLET PO SCH (08:29)
[2020-12-15] MEDS: Furosemide 20 MG TABLET PO SCH (08:29)
[2020-12-15] MEDS: Apixaban 5 MG TABLET PO SCH ×2 (08:29→20:34)
[2020-12-15] MEDS: Metoprolol XL (24 HR) Succ 25 MG TAB.ER.24H PO SCH ×2 (08:29→20:34)
[2020-12-15] MEDS: Budesonide/Formoterol 160/4.5 1 PUFF INH IH SCH (10:04)
[2020-12-15 11:51] LABS: Influenza A PCR Negative (Negative); Influenza B PCR Negative (Negative); Resp. Syncytial Virus PCR Negative (Negative)
[2020-12-15 12:06] LABS: SARS-CoV-2 by PCR (In House) Negative (Negative)
[2020-12-15] MEDS: Ertapenem 1,000 MG in 0.9 % Sodium Chloride Mini Bag 100 ML IVPB SCH (17:55)
[2020-12-15 19:03] VITALS: BP 109/63
[2020-12-15] MEDS: Gabapentin 300 MG CAPSULE PO SCH (20:35)
== END 2020-12-15 20:50 | DRG 853 ==
LOC: 2ANU 07:41 → EMEROOARM 07:41 → 2ANU 12:19 → SUATTDRO 12-04 08:19 → ICNU 12-06 04:56 → 2ANU 12-08 20:00
PROVIDERS: ADMIT Internal Medicine; ATTEND Internal Medicine

== ENCOUNTER 2021-01-02 23:03 | Inpatient (IN) ==
[2021-01-03] MEDS ORDERED: Naloxone 0.4 MG/ML INJ IVP PRN (05:04)
[2021-01-03] MEDS ORDERED: *HR* Promethazine 25 MG/ML VIAL IM PRN (05:04)
[2021-01-03] MEDS ORDERED: Ondansetron 4 MG/2 ML VIAL IVP PRN (05:04)
[2021-01-03] MEDS: Ringers Solution, Lactated 1,000 ML IVC SCH ×2 (05:53→11:18)
[2021-01-03 06:40] LABS: Basophils % 0.2 %; Eosinophils # 0.1 K/mcL (0.0-0.6); Hematocrit 29.3 % (37.5-50.1); Immature Granulocytes % 0.4 % (0-4); Lymphocytes # 1.1 K/mcL (0.6-4.6); Lymphocytes % 12.6 %; Mean Corpuscular HGB Conc 30.7 g/dL (31.6-35.5); Mean Corpuscular Hemoglobin 29.3 pg (28.0-33.3); Mean Corpuscular Volume 95.4 fL (83.0-100.0); Monocytes # 0.9 K/mcL (0.0-1.3); Monocytes % 9.4 %; Neutrophils # 6.9 K/mcL (1.6-8.9); Platelet Count 277 K/mcL (140-400); Red Blood Count 3.07 M/mcL (4.19-5.50); Red Cell Distribution Width 15.3 % (11.5-14.5); Segmented Neutrophils % 76.4 %; White Blood Count 9.1 K/mcL (4.3-11.1)
[2021-01-03 06:44] LABS: INR 1.8; Prothrombin Time 20.3 Seconds (9.4-12.1)
[2021-01-03 07:02] LABS: Alanine Aminotransferase 25 Units/L (7-52); Albumin 2.5 g/dL (3.5-5.7); Albumin/Globulin Ratio 0.6 (1.1-2.2); Alkaline Phosphatase 81 Units/L (34-104); Aspartate Amino Transferase 41 Units/L (13-39); BUN/Creatinine Ratio 25 (6-26); Bilirubin,Total 0.4 mg/dL (0.3-1.0); Blood Urea Nitrogen 13 mg/dL (8-23); Carbon Dioxide 22 mEq/L (23-29); Chloride 108 mEq/L (98-107); Globulin 4.2 g/dL (2.4-3.5); Glucose 87 mg/dL (70-105); Magnesium 1.8 mg/dL (1.6-2.6); Osmolality,Calculated 281 (280-300); Phosphorous 2.4 mg/dL (2.7-4.5); Potassium 4.2 mEq/L (3.5-5.1); Sodium 136 mEq/L (136-145); Total Protein 6.7 g/dL (6.4-8.9); eGFR For African Americans > 60 (> 60); eGFR For Non-African Americans > 60 (> 60)
[2021-01-03] MEDS: Meropenem 1,000 MG in Water for inj. (sterile) 20 ML IVP SCH ×3 (08:24→22:35)
[2021-01-03] MEDS: FLUoxetine 20 MG CAPSULE PO SCH (08:25)
[2021-01-03] MEDS: Aspirin 81 MG TAB.CHEW PO SCH (08:25)
[2021-01-03] MEDS: Metoprolol XL (24 HR) Succ 25 MG TAB.ER.24H PO SCH ×2 (08:25→19:13)
[2021-01-03] MEDS: Apixaban 5 MG TABLET PO SCH ×2 (08:25→19:13)
[2021-01-03] MEDS: Budesonide/Formoterol 160/4.5 1 PUFF INH IH SCH ×2 (10:46→21:52)
[2021-01-03] MEDS: Ipratropium/Albuterol Neb 3 ML IH SCH ×3 (10:50→21:52)
[2021-01-03] MEDS: Acetaminophen 325 MG TABLET PO PRN (19:11)
[2021-01-03] MEDS: Gabapentin 300 MG CAPSULE PO SCH (19:13)
[2021-01-04] MEDS: Ipratropium/Albuterol Neb 3 ML IH SCH ×4 (03:38→22:06)
[2021-01-04] MEDS: Meropenem 1,000 MG in Water for inj. (sterile) 20 ML IVP SCH ×3 (09:14→23:41)
[2021-01-04] MEDS: FLUoxetine 20 MG CAPSULE PO SCH (09:14)
[2021-01-04] MEDS: Aspirin 81 MG TAB.CHEW PO SCH (09:14)
[2021-01-04] MEDS: Metoprolol XL (24 HR) Succ 25 MG TAB.ER.24H PO SCH ×2 (09:14→19:12)
[2021-01-04] MEDS: Apixaban 5 MG TABLET PO SCH ×2 (09:14→19:12)
[2021-01-04] MEDS: Budesonide/Formoterol 160/4.5 1 PUFF INH IH SCH ×2 (11:17→22:06)
[2021-01-04 18:02] LABS: BUN/Creatinine Ratio 18 (6-26); Blood Urea Nitrogen 9 mg/dL (8-23); eGFR For African Americans > 60 (> 60); eGFR For Non-African Americans > 60 (> 60)
[2021-01-04] MEDS: Vancomycin 1,500 MG/265 ML IV.SOLN IVPB SCH (19:11)
[2021-01-04] MEDS: Gabapentin 300 MG CAPSULE PO SCH (19:12)
[2021-01-04] MEDS: Acetaminophen 325 MG TABLET PO PRN (22:38)
[2021-01-05] MEDS: Ipratropium/Albuterol Neb 3 ML IH SCH ×4 (04:37→21:22)
[2021-01-05] MEDS: Vancomycin 1,500 MG/265 ML IV.SOLN IVPB SCH (05:12)
[2021-01-05] MEDS: Meropenem 1,000 MG in Water for inj. (sterile) 20 ML IVP SCH (08:31)
[2021-01-05] MEDS: FLUoxetine 20 MG CAPSULE PO SCH (08:37)
[2021-01-05] MEDS: Apixaban 5 MG TABLET PO SCH ×2 (08:37→20:54)
[2021-01-05] MEDS: Aspirin 81 MG TAB.CHEW PO SCH (08:37)
[2021-01-05] MEDS: Metoprolol XL (24 HR) Succ 25 MG TAB.ER.24H PO SCH ×2 (08:38→20:50)
[2021-01-05] MEDS: Budesonide/Formoterol 160/4.5 1 PUFF INH IH SCH ×2 (09:53→21:22)
[2021-01-05] MEDS: *HR* HYDROcodone/Acet 5/325 mg TABLET PO PRN (10:08)
[2021-01-05 10:09] LABS: Basophils % 0.1 %; Eosinophils # 0.1 K/mcL (0.0-0.6); Eosinophils % 0.7 %; Hematocrit 30.1 % (37.5-50.1); Hemoglobin 9.6 g/dL (12.9-16.9); Immature Granulocytes % 0.2 % (0-4); Lymphocytes # 0.9 K/mcL (0.6-4.6); Lymphocytes % 10.6 %; Mean Corpuscular HGB Conc 31.9 g/dL (31.6-35.5); Mean Corpuscular Hemoglobin 28.9 pg (28.0-33.3); Mean Corpuscular Volume 90.7 fL (83.0-100.0); Mean Platelet Volume 10.8 fL (9.4-12.4); Monocytes # 0.9 K/mcL (0.0-1.3); Monocytes % 11.2 %; Neutrophils # 6.2 K/mcL (1.6-8.9); Platelet Count 228 K/mcL (140-400); Red Blood Count 3.32 M/mcL (4.19-5.50); Red Cell Distribution Width 15.1 % (11.5-14.5); Segmented Neutrophils % 77.2 %
[2021-01-05 10:22] LABS: BUN/Creatinine Ratio 15 (6-26); Blood Urea Nitrogen 7 mg/dL (8-23); Calcium 8.2 mg/dL (8.6-10.3); Carbon Dioxide 23 mEq/L (23-29); Chloride 103 mEq/L (98-107); Glucose 96 mg/dL (70-105); Osmolality,Calculated 276 (280-300); Potassium 3.7 mEq/L (3.5-5.1); Sodium 134 mEq/L (136-145); eGFR For African Americans > 60 (> 60); eGFR For Non-African Americans > 60 (> 60)
[2021-01-05] MEDS ORDERED: Isovue-370 500 ML BOTTLE IVP ONE (11:27)
[2021-01-05] MEDS: Sennosides/Docusate Sodium TABLET PO SCH ×2 (12:07→20:53)
[2021-01-05] MEDS: Ertapenem 1,000 MG in 0.9 % Sodium Chloride Mini Bag 100 ML IVPB SCH (15:52)
[2021-01-05] MEDS: Gabapentin 300 MG CAPSULE PO SCH (20:54)
[2021-01-06] MEDS: Ipratropium/Albuterol Neb 3 ML IH SCH ×4 (03:15→21:39)
[2021-01-06 05:11] LABS: Basophils % 0.2 %; Eosinophils # 0.2 K/mcL (0.0-0.6); Eosinophils % 1.9 %; Hematocrit 28.6 % (37.5-50.1); Hemoglobin 8.9 g/dL (12.9-16.9); Immature Granulocytes % 0.5 % (0-4); Lymphocytes # 1.5 K/mcL (0.6-4.6); Mean Corpuscular HGB Conc 31.1 g/dL (31.6-35.5); Mean Corpuscular Hemoglobin 28.1 pg (28.0-33.3); Mean Corpuscular Volume 90.2 fL (83.0-100.0); Mean Platelet Volume 10.2 fL (9.4-12.4); Monocytes # 1.1 K/mcL (0.0-1.3); Monocytes % 12.7 %; Neutrophils # 5.9 K/mcL (1.6-8.9); Platelet Count 295 K/mcL (140-400); Red Blood Count 3.17 M/mcL (4.19-5.50); Red Cell Distribution Width 14.8 % (11.5-14.5); Segmented Neutrophils % 67.7 %; White Blood Count 8.7 K/mcL (4.3-11.1)
[2021-01-06 05:13] LABS: VBG Ionized Calcium 1.19 mmol/L (1.15-1.35)
[2021-01-06] MEDS: Metoprolol XL (24 HR) Succ 25 MG TAB.ER.24H PO SCH ×2 (08:54→20:38)
[2021-01-06] MEDS: Sennosides/Docusate Sodium TABLET PO SCH ×2 (08:54→20:41)
[2021-01-06] MEDS: FLUoxetine 20 MG CAPSULE PO SCH (08:55)
[2021-01-06] MEDS: Apixaban 5 MG TABLET PO SCH ×2 (08:55→20:41)
[2021-01-06] MEDS: Aspirin 81 MG TAB.CHEW PO SCH (08:55)
[2021-01-06] MEDS: Ertapenem 1,000 MG in 0.9 % Sodium Chloride Mini Bag 100 ML IVPB SCH (08:55)
[2021-01-06] MEDS: Budesonide/Formoterol 160/4.5 1 PUFF INH IH SCH ×2 (09:48→21:39)
[2021-01-06] MEDS: *HR* HYDROcodone/Acet 5/325 mg TABLET PO PRN (18:35)
[2021-01-06] MEDS: Gabapentin 300 MG CAPSULE PO SCH (20:41)
[2021-01-07 03:44] LABS: Hematocrit 28.2 % (37.5-50.1); Hemoglobin 8.9 g/dL (12.9-16.9); Mean Corpuscular HGB Conc 31.6 g/dL (31.6-35.5); Mean Corpuscular Hemoglobin 28.2 pg (28.0-33.3); Mean Corpuscular Volume 89.2 fL (83.0-100.0); Mean Platelet Volume 10.4 fL (9.4-12.4); Platelet Count 314 K/mcL (140-400); Red Blood Count 3.16 M/mcL (4.19-5.50); Red Cell Distribution Width 14.8 % (11.5-14.5); White Blood Count 8.5 K/mcL (4.3-11.1)
[2021-01-07] MEDS: Ipratropium/Albuterol Neb 3 ML IH SCH ×2 (03:58→09:29)
[2021-01-07 07:16] VITALS: BP 132/74
[2021-01-07] MEDS: Aspirin 81 MG TAB.CHEW PO SCH (07:49)
[2021-01-07] MEDS: Metoprolol XL (24 HR) Succ 25 MG TAB.ER.24H PO SCH (07:49)
[2021-01-07] MEDS: Apixaban 5 MG TABLET PO SCH (07:49)
[2021-01-07] MEDS: Sennosides/Docusate Sodium TABLET PO SCH (07:49)
[2021-01-07] MEDS: FLUoxetine 20 MG CAPSULE PO SCH (07:49)
[2021-01-07] MEDS: Ertapenem 1,000 MG in 0.9 % Sodium Chloride Mini Bag 100 ML IVPB SCH (07:50)
[2021-01-07] MEDS: Budesonide/Formoterol 160/4.5 1 PUFF INH IH SCH (09:29)
== END 2021-01-07 13:35 | disposition home health service (06) | DRG 871 ==
LOC: 3BNU → OBSVTOIN 01-03 04:43 → SUATTDRO 01-03 04:43
PROVIDERS: ADMIT Internal Medicine; ATTEND Internal Medicine

== ENCOUNTER 2021-11-04 12:13 | Inpatient (IN) ==
[2021-11-04 13:28] LABS: Basophils % 0.5 %; Eosinophils # 0.3 K/mcL (0.0-0.6); Eosinophils % 3.8 %; Hematocrit 38.9 % (37.5-50.1); Immature Granulocytes % 0.1 % (0-4); Lymphocytes # 2.3 K/mcL (0.6-4.6); Lymphocytes % 31.4 %; Mean Corpuscular HGB Conc 30.8 g/dL (31.6-35.5); Mean Corpuscular Hemoglobin 28.2 pg (28.0-33.3); Mean Corpuscular Volume 91.5 fL (83.0-100.0); Mean Platelet Volume 10.6 fL (9.4-12.4); Monocytes % 13.8 %; Neutrophils # 3.7 K/mcL (1.6-8.9); Platelet Count 284 K/mcL (140-400); Red Blood Count 4.25 M/mcL (4.19-5.50); Red Cell Distribution Width 15.8 % (11.5-14.5); Segmented Neutrophils % 50.4 %; White Blood Count 7.4 K/mcL (4.3-11.1)
[2021-11-04 13:45] LABS: BUN/Creatinine Ratio 25 (6-26); Blood Urea Nitrogen 28 mg/dL (8-23); Calcium 8.7 mg/dL (8.6-10.3); Carbon Dioxide 28 mEq/L (23-29); Chloride 104 mEq/L (98-107); Glucose 79 mg/dL (70-105); Osmolality,Calculated 288 (280-300); Sodium 137 mEq/L (136-145); Troponin I < 0.03 ng/mL (< 0.04); eGFR For African Americans > 60 (> 60); eGFR For Non-African Americans > 60 (> 60)
[2021-11-04] MEDS ORDERED: Ondansetron 4 MG/2 ML VIAL IVP PRN (16:00)
[2021-11-04] MEDS ORDERED: Acetaminophen 325 MG TABLET PO PRN (16:00)
[2021-11-04] MEDS ORDERED: Naloxone 0.4 MG/ML INJ IVP PRN (16:00)
[2021-11-04] MEDS ORDERED: Melatonin 3 MG TABLET PO PRN (16:00)
[2021-11-04] MEDS ORDERED: Ipratropium/Albuterol Neb 3 ML IH PRN (17:50)
[2021-11-04] MEDS: Metoprolol XL (24 HR) Succ 25 MG TAB.ER.24H PO SCH (18:54)
[2021-11-04] MEDS: Budesonide/Formoterol 80/4.5 1 PUFF INH IH SCH (19:51)
[2021-11-05 05:22] LABS: Basophils % 0.5 %; Eosinophils # 0.3 K/mcL (0.0-0.6); Eosinophils % 3.2 %; Hematocrit 37.4 % (37.5-50.1); Hemoglobin 11.4 g/dL (12.9-16.9); Immature Granulocytes % 0.2 % (0-4); Lymphocytes # 2.4 K/mcL (0.6-4.6); Lymphocytes % 29.5 %; Mean Corpuscular HGB Conc 30.5 g/dL (31.6-35.5); Mean Corpuscular Hemoglobin 27.4 pg (28.0-33.3); Mean Corpuscular Volume 89.9 fL (83.0-100.0); Mean Platelet Volume 12.2 fL (9.4-12.4); Monocytes % 11.9 %; Neutrophils # 4.5 K/mcL (1.6-8.9); Platelet Count 145 K/mcL (140-400); Red Blood Count 4.16 M/mcL (4.19-5.50); Red Cell Distribution Width 15.6 % (11.5-14.5); Segmented Neutrophils % 54.7 %; White Blood Count 8.2 K/mcL (4.3-11.1)
[2021-11-05 05:59] LABS: BUN/Creatinine Ratio 32 (6-26); Blood Urea Nitrogen 25 mg/dL (8-23); Calcium 8.7 mg/dL (8.6-10.3); Carbon Dioxide 27 mEq/L (23-29); Chloride 107 mEq/L (98-107); Glucose 94 mg/dL (70-105); Osmolality,Calculated 292 (280-300); Sodium 139 mEq/L (136-145); eGFR For African Americans > 60 (> 60); eGFR For Non-African Americans > 60 (> 60)
[2021-11-05] MEDS ORDERED: *HR* Enoxaparin 40 MG/0.4 ML SYRINGE SQ SCH (06:00)
[2021-11-05] MEDS: Budesonide/Formoterol 80/4.5 1 PUFF INH IH SCH ×2 (07:47→20:19)
[2021-11-05] MEDS: Metoprolol XL (24 HR) Succ 25 MG TAB.ER.24H PO SCH ×2 (07:53→20:29)
[2021-11-05] MEDS ORDERED: Morphine Sulfate 2 MG/ML SYRINGE IVP PRN (08:00)
[2021-11-05] MEDS ORDERED: Acetaminophen 325 MG TABLET PO PRN (08:02)
[2021-11-05] MEDS ORDERED: lisinopriL 5 MG TABLET PO SCH (09:00)
[2021-11-05] MEDS: Gabapentin 300 MG CAPSULE PO SCH (20:29)
[2021-11-05] MEDS: Apixaban 5 MG TABLET PO SCH (20:30)
[2021-11-06 03:00] LABS: Hematocrit 37.4 % (37.5-50.1); Hemoglobin 11.8 g/dL (12.9-16.9); Mean Corpuscular HGB Conc 31.6 g/dL (31.6-35.5); Mean Corpuscular Hemoglobin 28.6 pg (28.0-33.3); Mean Corpuscular Volume 90.6 fL (83.0-100.0); Mean Platelet Volume 11.6 fL (9.4-12.4); Platelet Count 205 K/mcL (140-400); Red Blood Count 4.13 M/mcL (4.19-5.50); Red Cell Distribution Width 15.5 % (11.5-14.5); White Blood Count 7.2 K/mcL (4.3-11.1)
[2021-11-06 03:15] LABS: BUN/Creatinine Ratio 34 (6-26); Blood Urea Nitrogen 24 mg/dL (8-23); Calcium 9.1 mg/dL (8.6-10.3); Carbon Dioxide 24 mEq/L (23-29); Chloride 108 mEq/L (98-107); Glucose 87 mg/dL (70-105); Osmolality,Calculated 289 (280-300); Sodium 138 mEq/L (136-145); eGFR For African Americans > 60 (> 60); eGFR For Non-African Americans > 60 (> 60)
[2021-11-06] MEDS: Budesonide/Formoterol 80/4.5 1 PUFF INH IH SCH ×2 (08:40→21:09)
[2021-11-06] MEDS: Apixaban 5 MG TABLET PO SCH ×2 (09:37→19:58)
[2021-11-06] MEDS: Furosemide 20 MG TABLET PO SCH (09:37)
[2021-11-06] MEDS: Aspirin 81 MG TAB.CHEW PO SCH (09:37)
[2021-11-06] MEDS: lisinopriL 5 MG TABLET PO SCH (09:38)
[2021-11-06] MEDS: Metoprolol XL (24 HR) Succ 25 MG TAB.ER.24H PO SCH ×2 (09:38→19:58)
[2021-11-06] MEDS: Gabapentin 300 MG CAPSULE PO SCH (19:58)
[2021-11-07] MEDS: Budesonide/Formoterol 80/4.5 1 PUFF INH IH SCH ×2 (07:41→19:51)
[2021-11-07] MEDS: Apixaban 5 MG TABLET PO SCH ×2 (08:03→20:16)
[2021-11-07] MEDS: Metoprolol XL (24 HR) Succ 25 MG TAB.ER.24H PO SCH ×2 (08:03→20:40)
[2021-11-07] MEDS: lisinopriL 5 MG TABLET PO SCH (08:03)
[2021-11-07] MEDS: Furosemide 20 MG TABLET PO SCH (08:04)
[2021-11-07] MEDS: Aspirin 81 MG TAB.CHEW PO SCH (08:04)
[2021-11-07] MEDS: Gabapentin 300 MG CAPSULE PO SCH (20:40)
[2021-11-08] MEDS: Metoprolol XL (24 HR) Succ 25 MG TAB.ER.24H PO SCH ×2 (07:41→21:30)
[2021-11-08] MEDS: *HR* HYDROcodone/Acet 5/325 mg TABLET PO PRN (07:41)
[2021-11-08] MEDS: Furosemide 20 MG TABLET PO SCH (07:41)
[2021-11-08] MEDS: Aspirin 81 MG TAB.CHEW PO SCH (07:42)
[2021-11-08] MEDS: lisinopriL 5 MG TABLET PO SCH (07:42)
[2021-11-08] MEDS: Apixaban 5 MG TABLET PO SCH ×2 (07:42→20:32)
[2021-11-08] MEDS: Budesonide/Formoterol 80/4.5 1 PUFF INH IH SCH ×2 (08:07→20:32)
[2021-11-08] MEDS ORDERED: Perflutren Lipid Microsphere 1.3 ML in 0.9 % Sodium Chloride 8.7 ML IVP PRN (12:29)
[2021-11-08 13:10] LABS: Hematocrit 37.3 % (37.5-50.1); Hemoglobin 11.7 g/dL (12.9-16.9); Mean Corpuscular HGB Conc 31.4 g/dL (31.6-35.5); Mean Corpuscular Hemoglobin 28.3 pg (28.0-33.3); Mean Corpuscular Volume 90.1 fL (83.0-100.0); Platelet Count 274 K/mcL (140-400); Red Blood Count 4.14 M/mcL (4.19-5.50); Red Cell Distribution Width 15.6 % (11.5-14.5); White Blood Count 6.8 K/mcL (4.3-11.1)
[2021-11-08] MEDS: Gabapentin 300 MG CAPSULE PO SCH (20:32)
[2021-11-09 01:39] LABS: Hematocrit 37.8 % (37.5-50.1); Hemoglobin 11.8 g/dL (12.9-16.9); Mean Corpuscular HGB Conc 31.2 g/dL (31.6-35.5); Mean Corpuscular Hemoglobin 27.9 pg (28.0-33.3); Mean Corpuscular Volume 89.4 fL (83.0-100.0); Mean Platelet Volume 10.5 fL (9.4-12.4); Platelet Count 260 K/mcL (140-400); Red Blood Count 4.23 M/mcL (4.19-5.50); Red Cell Distribution Width 15.5 % (11.5-14.5); White Blood Count 8.1 K/mcL (4.3-11.1)
[2021-11-09 01:59] LABS: BUN/Creatinine Ratio 20 (6-26); Blood Urea Nitrogen 18 mg/dL (8-23); Calcium 9.1 mg/dL (8.6-10.3); Carbon Dioxide 25 mEq/L (23-29); Chloride 104 mEq/L (98-107); Glucose 95 mg/dL (70-105); Osmolality,Calculated 284 (280-300); Potassium 3.9 mEq/L (3.5-5.1); Sodium 136 mEq/L (136-145); eGFR For African Americans > 60 (> 60); eGFR For Non-African Americans > 60 (> 60)
[2021-11-09] MEDS: amLODIPine 5 MG TABLET PO SCH (08:06)
[2021-11-09] MEDS: lisinopriL 5 MG TABLET PO SCH (08:06)
[2021-11-09] MEDS: Metoprolol XL (24 HR) Succ 25 MG TAB.ER.24H PO SCH ×2 (08:06→21:47)
[2021-11-09] MEDS: *HR* HYDROcodone/Acet 5/325 mg TABLET PO PRN ×2 (08:06→18:27)
[2021-11-09] MEDS: Aspirin 81 MG TAB.CHEW PO SCH (08:07)
[2021-11-09] MEDS: Apixaban 5 MG TABLET PO SCH ×2 (08:07→20:15)
[2021-11-09] MEDS: Furosemide 20 MG TABLET PO SCH (08:07)
[2021-11-09] MEDS: FLUoxetine 20 MG CAPSULE PO SCH (08:07)
[2021-11-09] MEDS: Budesonide/Formoterol 80/4.5 1 PUFF INH IH SCH ×2 (08:16→20:37)
[2021-11-09] MEDS: Gabapentin 300 MG CAPSULE PO SCH (20:15)
[2021-11-10] MEDS: Budesonide/Formoterol 80/4.5 1 PUFF INH IH SCH ×2 (07:34→21:02)
[2021-11-10] MEDS: amLODIPine 5 MG TABLET PO SCH (07:44)
[2021-11-10] MEDS: Apixaban 5 MG TABLET PO SCH ×2 (07:44→20:29)
[2021-11-10] MEDS: lisinopriL 5 MG TABLET PO SCH (07:45)
[2021-11-10] MEDS: Aspirin 81 MG TAB.CHEW PO SCH (07:45)
[2021-11-10] MEDS: FLUoxetine 20 MG CAPSULE PO SCH (07:45)
[2021-11-10] MEDS: Furosemide 20 MG TABLET PO SCH (07:48)
[2021-11-10] MEDS: Metoprolol XL (24 HR) Succ 25 MG TAB.ER.24H PO SCH ×2 (12:28→20:30)
[2021-11-10] MEDS: *HR* HYDROcodone/Acet 5/325 mg TABLET PO PRN (15:18)
[2021-11-10 16:48] LABS: Hematocrit 37.9 % (37.5-50.1); Hemoglobin 11.7 g/dL (12.9-16.9); Mean Corpuscular HGB Conc 30.9 g/dL (31.6-35.5); Mean Corpuscular Hemoglobin 27.7 pg (28.0-33.3); Mean Corpuscular Volume 89.8 fL (83.0-100.0); Mean Platelet Volume 10.9 fL (9.4-12.4); Platelet Count 248 K/mcL (140-400); Red Blood Count 4.22 M/mcL (4.19-5.50); Red Cell Distribution Width 15.9 % (11.5-14.5); White Blood Count 8.4 K/mcL (4.3-11.1)
[2021-11-10 17:06] LABS: BUN/Creatinine Ratio 23 (6-26); Blood Urea Nitrogen 21 mg/dL (8-23); Calcium 8.9 mg/dL (8.6-10.3); Carbon Dioxide 28 mEq/L (23-29); Chloride 102 mEq/L (98-107); Glucose 116 mg/dL (70-105); Osmolality,Calculated 284 (280-300); Potassium 4.1 mEq/L (3.5-5.1); Sodium 135 mEq/L (136-145); eGFR For African Americans > 60 (> 60); eGFR For Non-African Americans > 60 (> 60)
[2021-11-10] MEDS: Gabapentin 300 MG CAPSULE PO SCH (20:29)
[2021-11-11 01:20] LABS: Hematocrit 37.2 % (37.5-50.1); Hemoglobin 11.5 g/dL (12.9-16.9); Mean Corpuscular HGB Conc 30.9 g/dL (31.6-35.5); Mean Corpuscular Hemoglobin 27.6 pg (28.0-33.3); Mean Corpuscular Volume 89.2 fL (83.0-100.0); Mean Platelet Volume 10.8 fL (9.4-12.4); Platelet Count 270 K/mcL (140-400); Red Blood Count 4.17 M/mcL (4.19-5.50); Red Cell Distribution Width 15.7 % (11.5-14.5); White Blood Count 7.9 K/mcL (4.3-11.1)
[2021-11-11 01:39] LABS: BUN/Creatinine Ratio 31 (6-26); Blood Urea Nitrogen 22 mg/dL (8-23); Calcium 8.8 mg/dL (8.6-10.3); Carbon Dioxide 26 mEq/L (23-29); Chloride 104 mEq/L (98-107); Glucose 94 mg/dL (70-105); Osmolality,Calculated 285 (280-300); Potassium 4.1 mEq/L (3.5-5.1); Sodium 136 mEq/L (136-145); eGFR For African Americans > 60 (> 60); eGFR For Non-African Americans > 60 (> 60)
[2021-11-11] MEDS: Budesonide/Formoterol 80/4.5 1 PUFF INH IH SCH ×2 (08:07→20:27)
[2021-11-11] MEDS: lisinopriL 5 MG TABLET PO SCH (09:23)
[2021-11-11] MEDS: Aspirin 81 MG TAB.CHEW PO SCH (09:23)
[2021-11-11] MEDS: Apixaban 5 MG TABLET PO SCH (09:24)
[2021-11-11] MEDS: amLODIPine 5 MG TABLET PO SCH (09:25)
[2021-11-11] MEDS: FLUoxetine 20 MG CAPSULE PO SCH (09:25)
[2021-11-11] MEDS: Metoprolol XL (24 HR) Succ 25 MG TAB.ER.24H PO SCH (09:26)
[2021-11-11] MEDS: Furosemide 20 MG TABLET PO SCH (09:26)
[2021-11-11] MEDS: *HR* HYDROcodone/Acet 5/325 mg TABLET PO PRN (09:43)
[2021-11-11 11:16] VITALS: TEMP 98.1
[2021-11-11 16:42] VITALS: BP 119/66; PULSE 69; O2SAT 91
[2021-11-11 16:59] LABS: Influenza A PCR Negative (Negative); Influenza B PCR Negative (Negative); Resp. Syncytial Virus PCR Negative (Negative)
[2021-11-11 17:02] LABS: SARS-CoV-2 by PCR (In House) Negative (Negative)
[2021-11-19] MEDS ORDERED: Patient Taking Own Medication 1 EACH SQ SCH (09:00)
== END 2021-11-11 19:04 | disposition other institution (70) | DRG 92 ==
LOC: EMEROOARM 12:13 → 3ANU 12:13 → SUATTDRO 11-07 15:11
PROVIDERS: ADMIT Hospitalist; ATTEND General Practice